=== PATIENT | female | born 2005 | race Caucasian/White ===

== ENCOUNTER 2025-08-18 19:17 | Emergency (ER) | payer OTHER, SELFPAY ==
[2025-08-18 19:18] VITALS: BP 140/97; PULSE 115; RESP 16; TEMP 36.2; O2SAT 100; BMI 27.4
--- NOTE | 2025-08-18 20:58 | EDS_ITS ---
HPI History of Present Illness Chief Complaint: Other, Pain/Inj Narrative Narrative: 20-year-old female states that she has a prior injury from 2 months ago when her shoulder. This is from a fall. She is currently being worked up at [employer] and sees a physician there. She states that as she was at work this evening, she experienced pain in her left shoulder radiating up her neck, then it was down her arm. She felt very dizzy, weak and lightheaded and states that she has pain when she moves her left shoulder. She states that the MRI of her shoulder previously where she fell, and did not find anything acute. She states that she was told that she may have a ruptured cervical disc/herniation. She describes numbness down her shoulder and down her arm with a generalized weakness of her left arm. She is right-hand dominant. [facility] Medical History Anxiety Bartholin cyst Shoulder injury Allergy/AdvReac Type Severity Reaction Status Date / Time No Known Allergies Allergy Verified 08/18/25 19:20 Surgical History H/O lumpectomy Hx of appendectomy Social History current occupational status: employed Smoking Status: Never smoker ROS ROS ED ROS Narrative Left arm and neck pain. Left cervical radicular pain. No fevers or chills. Positive nausea but no vomiting. Positive dizziness and lightheadedness. EXAM Physical Exam Narrative Exam Narrative: Afebrile. Vital signs noted. Nontoxic-appearing. Cardiovascular examination reveals regular rate and rhythm. Lungs are clear to auscultation bilaterally. Abdomen is soft and nontender with positive bowel sounds. Examination of the left upper extremity does show palpable radial pulse. She is able to oppose her thumb. She appears neurovascular intact distally. She has subjective pain in with range of motion of her left shoulder but is able to raise her arm. Neck is soft and supple without meningismus. She is able to sit up in bed and leaning forward. Const Vital Signs: 08/18/25 19:18 08/18/25 20:11 08/18/25 21:17 Temperature 97.2 F L Temperature Source Oral Pulse Rate 115 H 111 H Respiratory Rate 16 18 Respiratory Pattern Normal Blood Pressure 140/97 H Blood Pressure Mean 111 Pulse Ox 100 98 Oxygen Delivery Method Room Air MDM MDM MDM Narrative Medical decision making narrative: Differential diagnosis includes but not limited to cervical strain versus radicular pain versus muscular pain. I do not feel that she needs a stat MRI. She was initially injured 2 months ago. For her dizziness and lightheadedness, I will check a CBC and BMP to look for anemia or signs of dehydration. I will obtain CT of the brain and of the cervical spine. I reviewed her laboratory work and she has normal white count of 5.0 with hemoglobin 13.7, no anemia. Platelet count normal at 204. Electrolyte panel sh ows BUN normal at 14 with creatinine 0.63. Glucose of 90. No evidence of dehydration. I reviewed the radiology report of the CT of the brain and there is no acute process. CT of the cervical spine shows no fracture on radiology report review. Vertebral heights are normal. Upon repeat examination, she states that she has a headache and history of migraine headache. I offered subcutaneous injection of Imitrex which she states she does not want and prefers to be discharged to follow-up. She states she used to see a neurologist for headaches. At this point in time, I feel she can be discharged to follow-up with her [employer] provider. I do not feel she requires admission. Disposition is discharged home in stable condition. History & Record Review Discussion w/independent historian: Patient Lab Data Attestation: I reviewed the patient's lab results. Labs: Laboratory Results - last 24 hr 08/18/25 21:11 WBC 5.0 RBC 4.59 Hgb 13.7 Hct 40.6 MCV 88.5 MCH 29.8 MCHC 33.7 RDW Std Deviation 38.1 RDW Coeff of Monica 11.9 Plt Count 204 MPV 10.9 Immature Gran % (Auto) 0.200 Neut % (Auto) 53.9 Lymph % (Auto) 37.1 Union % (Auto) 8.2 Eos % (Auto) 0.0 Baso % (Auto) 0.6 Absolute Neuts (auto) 2.7 Absolute Lymphs (auto) 1.86 Nucleated RBC % 0 Sodium 138 Potassium 4.0 Chloride 104 Carbon Dioxide 21.4 Anion Gap 12 BUN 14 Creatinine 0.63 L Estim Creat Clear Calc 114.93 Est GFR (MDRD) Non-Af 129 BUN/Creatinine Ratio 22.1 H Glucose 90 Calcium 9.3 Radiography Diagnostic Testing: Clinical Impression(s) from Imaging Studies Brain CT 08/18/25 21:25 IMPRESSION: No acute abnormality Reading Location: [facility] Cervical Spine CT 08/18/25 21:25 IMPRESSION: Study within normal limits Reading Location: [facility] Discharge Plan Triage Chief Complaint: Other, Pain/Inj ED Provider: Adrian Saunders Dx/Rx/DC Orders Clinical Impression: Neck and shoulder pain, Cervical radicular pain, Paresthesia of left arm Instructions: ED Neck Pain, ED Radiculopathy, Cervical, ED Paresthesia Primary Care Provider: NOT,DEFINED Referrals: NOT,DEFINED [Primary Care Provider, None] Activity Restrictions/Additional Instructions: Follow-up with your [facility] provider tomorrow. Continue your medications that you had been given previously. Print Language: Occitan Disposition Disposition: Home, Self Care
[2025-08-18 21:17] VITALS: PULSE 111; RESP 18; O2SAT 98
--- NOTE | 2025-08-18 21:25 | CT_ITS ---
PROCEDURE: SPINE CERVICAL WITHOUT CONTRAS 08/18/2025 REASON FOR EXAM: PAIN TECHNIQUE: Procedure Code: CTSPC Modality: CT Procedure: SPINE CERVICAL WITHOUT CONTRAS Coronal and Sagittal reconstruction series were provided. One or more dose reduction techniques were used (e.g., Automated exposure control, adjustment of the mA and/or kV according to patient size, use of iterative reconstruction technique. RADIATION DOSE SUMMARY: CTDlvol: 60 mGy DLP: 1116 mGycm FINDINGS: Normal cervical alignment and vertebral body height. There is no compression deformity or subluxation. No facet fracture is seen. No loss of vertebral body height. Normal C1 and C2. No fracture of the pedicles, lamina or facets identified. Lung apices are clear. No soft tissue masses are identified. CT/Spine Cervical without Contras IMPRESSION: Study within normal limits Reading [facility]
--- NOTE | 2025-08-18 21:25 | CT_ITS ---
PROCEDURE: BRAIN/HEAD WITHOUT CONTRAST 08/18/2025 REASON FOR EXAM: DIZZINESS TECHNIQUE: Procedure Code: CTBR Modality: CT Procedure: BRAIN/HEAD WITHOUT CONTRAST Coronal and Sagittal reconstruction series were provided. One or more dose reduction techniques were used (e.g., Automated exposure control, adjustment of the mA and/or kV according to patient size, use of iterative reconstruction technique. RADIATION DOSE SUMMARY: CTDlvol: 60 mGy DLP: 1116 mGycm FINDINGS: The bony calvarium is intact. The sinuses are clear. Normal brainstem and cerebellum. No intracranial mass, hemorrhage or edema. CT/Brain/Head without Contrast IMPRESSION: No acute abnormality Reading Location[facility] [place]
[2025-08-18 21:41] LABS: Hematocrit 40.6 % (37-47); Hemoglobin 13.7 g/dL (12.0-15.0); Immature Granulocytes Count 0.010 X10^3/uL (0.0-0.0); Mean Corp Hgb Conc 33.7 g/dL (32-36); Mean Corpuscular Volume 88.5 fL (81-99); Mean Platelet Vol. 10.9 fl (6.2-12.0); NRBC Flagged by Analyzer 0 % (0-5); Platelet Count 204 K/mm3 (150-450); RBC Distribution Width CV 11.9 % (11.6-14.6); RBC Distribution Width SD 38.1 fl (35.1-43.9); Red Blood Count 4.59 M/mm3 (4.2-5.4); White Blood Count 5.0 K/mm3 (4.4-11.0)
[2025-08-18 22:01] LABS: Anion Gap 12 (5-15); BUN 14 mg/dL (4-19); BUN/Creat Ratio 22.1 RATIO (10-20); Calcium,Total 9.3 mg/dL (7.6-11.0); Carbon Dioxide 21.4 mmol/L (21.0-32.0); Chloride 104 mmol/L (98-108); Estimated Creatinine Clearance 114.93 ml/min (50-250); Glucose 90 mg/dL (70-99); Potassium 4.0 mmol/L (3.3-5.1)
[2025-08-18 23:02] VITALS: BP 128/86; PULSE 100; RESP 16; TEMP 36.8; O2SAT 99
== END 2025-08-18 23:03 | disposition home or self-care (01) ==
PROVIDERS: Emergency Provider Emergency Medicine; PCP Internal Medicine; Visit Provider Emergency Medicine
DX: M54.2 Cervicalgia (principal); M25.512 Pain in left shoulder; R20.2 Paresthesia of skin; M79.602 Pain in left arm; R42 Dizziness and giddiness; X58.XXXA Exposure to other specified factors, initial encounter
CPT/HCPCS: 70450; 72125; 80048; 85025; 99284; A4216